=== PATIENT | male | born 1960 | race Caucasian/White ===

== ENCOUNTER → 2017-03-02 | Outpatient (CLI) | payer BC ==
[~2017-03-02] MED LIST: ALLO300T PO; BISA10SU2 PO; BISA5TAB5 PO; DOCU100C33 PO; ENOX80SY5 SQ; METO50TA3 PO; OMEP20TA62 PO; OMEP40CA6 PO; OMNIPAQUE 350 MG/ML, 100ML BOTTLE ONE; ONDA8TAB15 PO; PRED20TA PO; PROC10TA PO; SULF-169 PO; SULF1TAB24 PO; WARF5TAB PO; WARF7.5T6 PO
== END | disposition home or self-care (01) ==
LOC: CFH 08:57
PROVIDERS: ATTEND Internal Medicine
DX: K57.90 Diverticulosis of intestine, part unspecified, without perforation or abscess without bleeding (principal); D73.89 Other diseases of spleen; C83.38 Diffuse large B-cell lymphoma, lymph nodes of multiple sites
CPT/HCPCS: 71260; 74177; 82565; Q9967